=== PATIENT | female | born 1945 | race Caucasian/White ===

== ENCOUNTER 2017-07-10 10:26 | Outpatient (CLI) | payer MEDICARE | END 2017-07-10 10:27 | disposition home or self-care (01) | LOC: LABBT 10:26 | PROVIDERS: ATTEND Neurological Surgery | DX: Z01.818 Encounter for other preprocedural examination (principal); M54.16 Radiculopathy, lumbar region | CPT/HCPCS: 93005; 93010 ==

== ENCOUNTER 2017-07-17 05:40 | Day surgery (SDC) | payer MEDICARE ==
[2017-07-10 10:55] VITALS: BMI 22.4
--- NOTE | 2017-07-17 00:50 | HP ---
HISTORY OF PRESENT ILLNESS: Ms. Enriquez is a 72-year-old woman who presents for left lower extremity L 5 pain, which is profound. She has trouble sleeping and walking because of it and has tried physical therapy, injections, and medications with minimal relief. MRI on disk reveals L5 foraminal stenosis and L4 lateral recess stenosis, compressing this descending and exiting L5 nerve root. She is here to discuss possible surgical intervention. PAST MEDICAL HISTORY: Significant for hypertension, gastroesophageal reflux disease, coronary arteri al disease, and hyperlipidemia, and osteopenia. CURRENT MEDICATIONS: Swatara, nitroglycerin, gabapentin, lisinopril, Crestor, alendronate. ALLERGIES: No known drug allergies. PAST SURGICAL HISTORY: Shoulder surgery. PHYSICAL EXAMINATION: Patient is alert and oriented x3. Gait is antalgic. Lower extremity motor ex am is normal. ASSESSMENT: Lumbar radicular pain. PLAN: Dr. Driscoll met with the patient, reviewed imaging and ultimately advocated for a left-sided L4 and L5 decompression. He explained to the patient the risks, benefits, and alternatives to the proce dure. The patient expressed understanding and would like to move forward with surgery as discussed. I do believe the patient is mentally competent and capable of making medical decisions for herself a nd we will move forward with surgery as planned. [employer] Ced Mcintosh PA-C, dictating for Juan M Bartholomeworm
[2017-07-17] MEDS ORDERED: Bupivacaine PF 0.5% 30 ML VIAL ONE (06:20)
[2017-07-17] MEDS ORDERED: Thrombin 5000 UNITS/5 ML VIAL ONE (06:20)
[2017-07-17] MEDS ORDERED: CEFAZOLIN/Water 2 GM/20 ML SYRINGE ONE ×2 (06:36→11:29)
[2017-07-17] MEDS ORDERED: Fentanyl 100 MCG/2 ML VIAL ONE ×3 (06:50→09:08)
[2017-07-17] MEDS ORDERED: diphenhydrAMINE 25 MG CAP ONE (09:04)
[2017-07-17] MEDS ORDERED: Non-Formulary Medication 1 EACH PO PRN (09:08)
[2017-07-17] MEDS ORDERED: Ondansetron HCl/PF 4 MG/2 ML Vial IVP PRN (09:08)
[2017-07-17] MEDS ORDERED: Promethazine HCl 25 MG/ML VIAL IM/IV PRN (09:08)
[2017-07-17] MEDS ORDERED: Bisacodyl 10 MG SUPP PR PRN (09:12)
[2017-07-17] MEDS ORDERED: Acetaminophen 650 MG Suppository PR PRN (09:12)
[2017-07-17] MEDS ORDERED: Acetaminophen/Codeine 30-300mg Tablet PO PRN ×2 (09:12)
[2017-07-17] MEDS ORDERED: diphenhydrAMINE 50 MG/ML VIAL IVP PRN (09:12)
[2017-07-17] MEDS ORDERED: Mag-Al 1200 mg/1200 mg/30 ML UDCUP PO PRN (09:12)
[2017-07-17] MEDS ORDERED: tiZANidine HCl 4 MG TAB PO PRN (09:12)
[2017-07-17] MEDS ORDERED: diphenhydrAMINE 25 MG CAP PO PRN (09:12)
[2017-07-17] MEDS ORDERED: Sodium Chloride 0.9% 1,000 ML IV SCH (09:12)
[2017-07-17] MEDS ORDERED: Acetaminophen 325 MG TAB PO PRN (09:12)
[2017-07-17] MEDS ORDERED: Morphine 4 MG/ML Carpuject SLOW IVP PRN (09:12)
[2017-07-17] MEDS ORDERED: Ondansetron HCl/PF 4 MG/2 ML Vial IM PRN (09:14)
--- NOTE | 2017-07-17 10:12 | OP ---
DATE OF PROCEDURE: 07/17/2017 SURGEON: Carlos Driscoll M.D. AUTOMOTIVE WORKER: Ced Mcintosh PA-C INDICATION: Pain. DIAGNOSIS: Lumbar radiculopathy. PROCEDURE: L4-L5 lumbar decompression on the left and L5 foraminotomy. ANESTHESIA: General. TECHNIQUE: The patient was brought into the operating room and placed on general anesthesia. She wa s flipped from a supine to a prone position on the operating room table. A linear incision was plann ed over the L5 segment. After prepping and draping and after an appropriate operative pause, the inc ision was created. Soft tissues were swept left away midline. A self-retaining retractor was placed in the wound for optimal exposure. After confirming the appropriate level with C-arm fluoroscopy, a high-speed cutting drill bit as well as 2, 3 and 4 mm Kerrisons were used to perform laminectomy pamela ng the inferior aspect of L5, which extended into the inferior aspect of L4. A foraminotomy was perf ormed over the exiting L5 nerve root once the L5 pedicle was identified. At the completion of the pr ocedure, the lateral recesses at the L4-L5 were decompressed as was the foramen through which the exi ting L5 nerve root exited. The wound was irrigated. Hemostasis was maintained throughout. The woun d was then closed in anatomic layers and a pressure dressing was applied. There were no known proced ural complications.
[2017-07-17] MEDS ORDERED: Acetaminophen/Codeine 30-300mg Tablet ONE (11:33)
[2017-07-17] MEDS ORDERED: CEFAZOLIN/Water 2 GM/20 ML SYRINGE SLOW IVP SCH (15:00)
[2017-07-17] MEDS ORDERED: PHENYLEPHRINE-NS 100 MCG/ML 10 ML SYRINGE ONE (15:21)
[2017-07-17] MEDS ORDERED: Ketorolac Tromethamine 30 MG/ML VIAL ONE (15:21)
[2017-07-17] MEDS ORDERED: PROPOFOL 200 MG/20 ML VIAL ONE (15:21)
[2017-07-17] MEDS ORDERED: Dexamethasone 20 MG/5 ML VIAL ONE (15:21)
[2017-07-17] MEDS ORDERED: Glycopyrrolate 0.2 MG/ML 5 ML SYRINGE ONE (15:21)
[2017-07-17] MEDS ORDERED: Lidocaine 1% PF 5 ML VIAL ONE (15:21)
== END 2017-07-17 11:55 | disposition home or self-care (01) ==
LOC: SDC 05:40
PROVIDERS: ATTEND Neurological Surgery
PROC: 00NY0ZZ Release Lumbar Spinal Cord, Open Approach (ICD-10-PCS; principal; 2017-07-17)
DX: M54.16 Radiculopathy, lumbar region (principal); I10 Essential (primary) hypertension; K21.9 Gastro-esophageal reflux disease without esophagitis; I25.10 Atherosclerotic heart disease of native coronary artery without angina pectoris; E78.5 Hyperlipidemia, unspecified; M85.80 Other specified disorders of bone density and structure, unspecified site; Z79.899 Other long term (current) drug therapy; Z98.890 Other specified postprocedural states
CPT/HCPCS: 76001; 96374; J0131; J1100; J1885; J2001; J2704; J3010; S0020

== ENCOUNTER 2019-03-03 15:17 | Inpatient (IN) | payer MEDICARE ==
[~2019-03-03 15:17] MED LIST: ISOVUE-370 76%-LOCM 1 ML ONE
[2019-03-03] MEDS ORDERED: Ondansetron PF 4 MG/2 ML Vial ONE (15:50)
[2019-03-03] MEDS ORDERED: Morphine 4 MG/ML VIAL ONE (15:51)
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
[2019-03-03 16:04] LABS: #Basophils 0.1 thou/uL (0.0-0.2); #Eosinphils 0.1 thou/uL (0.0-0.7); #Lymphocytes 1.7 thou/uL (1.20-3.40); #Monocytes 0.7 thou/uL (0.11-0.59); %Basophils 0.6 % (0.0-1.0); %Eosinophils 0.8 % (0.0-10.0); %Lymphocytes 14.9 % (21.0-51.0); %Monocytes 5.8 % (0.0-10.0); %Neutrophils 77.9 % (42.0-75.0); Hemoglobin 13.1 g/dL (12.0-16.0); Mean Corpuscular HGB CONC 34.5 g/dL (32.0-36.0); Mean Corpuscular Hemoglobin 33.4 pg (27.0-31.0); Mean Corpuscular Volume 96.9 fL (78.0-98.0); Mean Platelet Volume 6.9 fL (7.4-10.4); Platelet Count 191 thou/uL (130-400); RBC Distribution Width 12.1 % (11.5-14.5); Red Blood Cell (RBC) Count 3.92 mill/uL (4.20-5.40); White Blood Cell (WBC) Count 11.5 thou/uL (4.8-10.8)
--- NOTE | 2019-03-03 16:07 | CT ---
CT of the chest, abdomen, pelvis: 03/03/2019 COMPARISON: None HISTORY: Injury, trauma, pain TECHNIQUE: Axial CT imaging at 5 mm intervals from thoracic inlet through pubic symphysis with IV con trast. Coronal and sagittal reformatted imaging of the chest, abdomen, pelvis, thoracic spine, and lumbar spine provided. FINDINGS: Incidental note is made of bilateral thyroid nodules measuring up to 1.5 cm on the left and 1.2 cm on the right. Nonemergent follow-up thyroid ultrasound is advised. No axillary, hilar, or mediastinal lymphadenopathy. No pleural, pericardial, or mediastinal fluid is noted. There is scattered atherosclerotic calcification of the aortic arch and descending thoracic aorta. There is no pneumothorax noted on either side. There are nonspecific areas of pleural-based nodularity noted posteriorly within both lung bases. Thi s includes a focal area of pleural nodularity within the right lower lobe measuring 5 mm in AP dimension on axial image 41 and an area of pleural nodularity within the left lower lobe posteriorly measuring 1.5 cm in transverse dimension. Review of the osseous structures of the chest demonstrates degenerative change involving the acromioc lavicular joint bilaterally. Postoperative linear hypodensity noted within the right humeral head. Neither shoulder is dislocated. Clavicles, manubrium, and sternum appear unremarkable. No evidence for an acute rib fracture noted on either side. No free intraperitoneal air or fluid. The liver, gallbladder, spleen, pancreas, adrenal glands, and kidneys demonstrate no acute findings. There are multiple bilateral renal hypodensities, many of which are too small to characterize. There is a nonspecific hypodense lesion within the midpole of the right kidney with Hounsfield units of 21 measuring 1.8 cm, not consistent with a simple cyst. There is a mass within the pelvis which demonstrates a central area of dense calcification. This mass measures 2.6 x 3.4 cm with a prominent area of internal rounded calcification. This is unchanged when compared to a CT of the lumbar spine performed 10/10/2017 and suggests a granuloma. Limited assessment of the bowel demonstrates no evidence for obstruction. There is extensive atherosclerotic calcification of the abdominal aorta and its branches. There is an eurysmal dilatation of the abdominal aorta on axial image 65 measuring 3 cm in transverse dimension. The osseous structures of the pelvis demonstrate no evidence for fracture of the inferior or superior pubic ramus on either side. Neither hip is dislocated. No widening of the sacroiliac joints or the pubic symphysis. No evidence for a sacral fracture. There is multilevel upper thoracic spine bilateral facet hypertrophy. There is a Schmorl's node involving the superior endplate of T12, stable. There is minimal anterior w edging at the T5 and T6 vertebral levels suggesting mild age indeterminant anterior wedge compression fracture deformities. There is a mild anterior wedge compression fracture of L2, stable w hen compared to the 10/20/2017 CT examination of the lumbar spine. There is prominent lower lumbar spine facet hypertrophy and there is prominent degenerative change at the lumbosacral junction. IMPRESSION: 1. Posterior pleural-based nodularity within the lung bases for which follow-up chest CT is advised i n 3-6 months 2. Hypodense thyroid nodules for which follow-up thyroid ultrasound is advised. 3. Nonspecific hypodense lesion within the midpole of the right kidney. Follow-up renal ultrasound is advised. 4. Infrarenal abdominal aortic aneurysm 5. Age indeterminant mild anterior wedge compression fractures of T5 and T6.
[2019-03-03 16:11] LABS: PTT 25.7 SEC (22.9-36.1); Prothrombin Time 13.4 SEC (12.0-14.7)
[2019-03-03 16:29] LABS: ALT (SGPT) 36 U/L (8-55); AST (SGOT) 32 U/L (5-34); Albumin 3.8 g/dL (3.4-4.8); Alkaline Phosphatase 67 U/L (40-150); Anion Gap 7 mmol/L (10-20); BUN (Urea Nitrogen) 13 mg/dL (9.8-20.1); Bilirubin, Total 0.2 mg/dL (0.2-1.2); Calc. Creatinine Clearance 0 mL/min (70-130); Calcium 9.4 mg/dL (7.8-10.44); Carbon Dioxide 27 mmol/L (23-31); Chloride 109 mmol/L (98-107); Estimated GFR-MDRD 66; Globulin 1.7 g/dL (2.4-3.5); Glucose 140 mg/dL (83-110); Potassium 4.8 mmol/L (3.5-5.1); Protein, Total 5.5 g/dL (6.0-8.3); Sodium 138 mmol/L (136-145)
[2019-03-03] MEDS ORDERED: Morphine 2 MG/ML SYRINGE ONE (17:00)
[2019-03-03] MEDS ORDERED: Acetaminophen 500 MG TAB ONE (17:01)
[2019-03-03] MEDS ORDERED: Ondansetron PF 4 MG/2 ML Vial IVP PRN (17:08)
[2019-03-03] MEDS ORDERED: Promethazine HCl 25 MG/ML VIAL IM PRN (17:08)
[2019-03-03] MEDS ORDERED: Dextrose 5% in Water 1,000 ML IV PRN (17:08)
[2019-03-03] MEDS ORDERED: Dextrose 50% Abboject 50 ML SYRINGE SLOW IVP PRN (17:08)
[2019-03-03] MEDS ORDERED: hydrALAZINE 20 MG/ML VIAL SLOW IVP PRN (17:08)
[2019-03-03] MEDS ORDERED: Ondansetron ODT 4 MG TAB PO PRN (17:08)
[2019-03-03] MEDS ORDERED: HumaLOG 300 UNITS/3 ML VIAL SC PRN (17:08)
[2019-03-03] MEDS ORDERED: Gabapentin 100 MG CAP PO PRN (17:14)
--- NOTE | 2019-03-03 17:16 | RAD ---
LEFT ANKLE THREE VIEWS: Date: 03-03-19 Comparison: None. History: Injury, trauma, pain. FINDINGS: There is lateral soft tissue swelling. Talar dome and ankle mortise appear intact. There is a questionable sclerotic band traversing the calcaneus. In addition, volar angle appears fla ttened. This is suspicious for a calcaneal fracture. IMPRESSION: Calcaneal fracture. This could be better assessed via CT. POS: OFF
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
--- NOTE | 2019-03-03 17:31 | CT ---
CT of the left foot: 03/03/2019 COMPARISON: None HISTORY: Evaluate calcaneal fracture noted on previous radiographs TECHNIQUE: Axial CT imaging is obtained at 2.5 mm intervals through the left foot without contrast. C oronal and sagittal reformatted imaging obtained. FINDINGS: Visualized portions of the distal tibia and fibula demonstrate no acute fracture. There is no evidence for acute fracture of the talus. There is a markedly comminuted fracture of the calcaneus with marked calcaneal flattening. There is involvement of the medial lateral superior and i nferior calcaneal cortex. There is multifocal extension into the subtalar joint involving the regions of the anterior middle an d posterior facets. There is abnormal widening of the subtalar joint with internal fluid. There is no evidence for fracture of the cuboid or navicular bone. The cuneiforms appear intact. No e vidence for metatarsal or phalangeal fracture. There is prominent soft tissue swelling adjacent to the calcaneal fracture. IMPRESSION: Markedly comminuted fracture of the calcaneus with multifocal extension into the subtalar joint. Orthopedic consultation advised.
[2019-03-03] MEDS ORDERED: HYDROcodone/Acetaminophen 10/325 mg Tablet PO PRN (17:54)
[2019-03-03] MEDS ORDERED: traMADol HCl 50 MG TAB PO SCH (18:00)
[2019-03-03] MEDS: Ketorolac Tromethamine 30 MG/ML VIAL IVP SCH ×2 (18:37→23:41)
[2019-03-03] MEDS: traMADol HCl 50 MG TAB PO PRN (18:37)
[2019-03-03] MEDS: Sodium Chloride 0.9% 1,000 ML IV SCH ×2 (18:38→23:56)
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
[2019-03-03] MEDS ORDERED: CEFAZOLIN 2 GM in Premix Bag 1 BAG IVPB SCH (20:15)
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
[2019-03-03] MEDS: Rosuvastatin 20 MG TAB PO SCH (20:51)
[2019-03-03] MEDS: Gabapentin 300 MG CAP PO SCH (20:51)
[2019-03-03] MEDS: Senokot S 8.6-50 MG TAB PO SCH (20:52)
[2019-03-03] MEDS: Famotidine/PF 20 mg/2ml Vial SLOW IVP SCH (20:52)
[2019-03-03] MEDS ORDERED: Gabapentin 100 MG CAP PO SCH (21:00)
[2019-03-03] MEDS: Cyclobenzaprine 10 MG TAB PO PRN (23:41)
[2019-03-03] MEDS: Acetaminophen 1,000 MG in Premix Bag 1 BAG IVPB SCH (23:42)
[2019-03-04] MEDS: Morphine 2 MG/ML SYRINGE SLOW IVP PRN ×2 (01:45→09:31)
[2019-03-04] MEDS: traMADol HCl 50 MG TAB PO PRN (02:45)
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
[2019-03-04] MEDS: Ketorolac Tromethamine 30 MG/ML VIAL IVP SCH ×3 (06:23→17:56)
[2019-03-04 07:08] LABS: #Basophils 0.1 thou/uL (0.0-0.2); #Eosinphils 0.2 thou/uL (0.0-0.7); #Lymphocytes 1.7 thou/uL (1.20-3.40); #Monocytes 0.9 thou/uL (0.11-0.59); #Neutrophils 5.4 thou/uL (1.40-6.50); %Basophils 0.7 % (0.0-1.0); %Eosinophils 2.1 % (0.0-10.0); %Lymphocytes 20.7 % (21.0-51.0); %Monocytes 10.4 % (0.0-10.0); %Neutrophils 66.1 % (42.0-75.0); Hemoglobin 11.8 g/dL (12.0-16.0); Mean Corpuscular HGB CONC 33.9 g/dL (32.0-36.0); Mean Corpuscular Hemoglobin 32.8 pg (27.0-31.0); Mean Corpuscular Volume 96.6 fL (78.0-98.0); Mean Platelet Volume 7.1 fL (7.4-10.4); Platelet Count 143 thou/uL (130-400); RBC Distribution Width 12.2 % (11.5-14.5); White Blood Cell (WBC) Count 8.2 thou/uL (4.8-10.8)
[2019-03-04 07:32] LABS: Anion Gap 6 mmol/L (10-20); BUN (Urea Nitrogen) 13 mg/dL (9.8-20.1); Calc. Creatinine Clearance 61 mL/min (70-130); Calcium 8.6 mg/dL (7.8-10.44); Carbon Dioxide 25 mmol/L (23-31); Chloride 113 mmol/L (98-107); Estimated GFR-MDRD 75; Glucose 118 mg/dL (83-110); Magnesium 1.9 mg/dL (1.6-2.6); Phosphorus 3.4 mg/dL (2.3-4.7); Potassium 4.1 mmol/L (3.5-5.1); Sodium 140 mmol/L (136-145)
[2019-03-04] MEDS ORDERED: Prevnar 13-Val Conj/PF 0.5 ML SYRINGE IM ONE (09:00)
[2019-03-04] MEDS: Gabapentin 300 MG CAP PO SCH ×3 (09:27→20:26)
[2019-03-04] MEDS: Lisinopril 5 MG TAB PO SCH (09:27)
[2019-03-04] MEDS: Polyethylene Glycol 3350 17 GM Packet PO SCH (09:28)
[2019-03-04] MEDS: Senokot S 8.6-50 MG TAB PO SCH ×2 (09:28→20:26)
[2019-03-04] MEDS: Acetaminophen 1,000 MG in Premix Bag 1 BAG IVPB SCH ×2 (09:31→17:56)
[2019-03-04] MEDS: Famotidine/PF 20 mg/2ml Vial SLOW IVP SCH ×2 (09:32→20:26)
[2019-03-04] MEDS ORDERED: Nicotine 21 MG PATCH TD SCH (11:00)
[2019-03-04] MEDS: Sodium Chloride 0.9% 1,000 ML IV SCH ×2 (11:39→18:42)
[2019-03-04] MEDS ORDERED: Midazolam HCl 2 mg/2 ml Vial ONE (12:49)
[2019-03-04] MEDS ORDERED: Dexamethasone 4 mg/ml Vial ONE (12:49)
[2019-03-04] MEDS ORDERED: Fentanyl 100 MCG/2 ML VIAL ONE ×2 (12:49→14:19)
[2019-03-04] MEDS: Nicotine 21 MG PATCH TD SCH (15:02)
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
[2019-03-04] MEDS ORDERED: Promethazine HCl 25 MG/ML VIAL IM PRN (16:13)
[2019-03-04] MEDS ORDERED: Ondansetron HCl/PF 4 MG/2 ML Vial IVP PRN (16:13)
[2019-03-04] MEDS ORDERED: Morphine Sulfate 2 MG/ML SYRINGE SLOW IVP PRN (16:13)
[2019-03-04] MEDS ORDERED: Promethazine HCl 25 MG/ML VIAL SLOW IVP PRN (16:13)
[2019-03-04] MEDS ORDERED: PACU-Morphine 4MG/ML VIAL SLOW IVP PRN (16:13)
[2019-03-04] MEDS ORDERED: HYDROmorphone 2 MG/ML VIAL SLOW IVP PRN (16:13)
--- NOTE | 2019-03-04 16:37 | OP ---
DATE OF PROCEDURE: 03/04/2019 OPERATIONS PERFORMED: 1. Open reduction and internal fixation of left calcaneus fracture. 2. Left knee inferior pole of patella excision with repair of patella tendon. PREOPERATIVE DIAGNOSES: 1. Comminuted left patella fracture. 2. Comminuted and displaced left calcaneus fracture. POSTOPERATIVE DIAGNOSES: 1. Comminuted left patella fracture. 2. Comminuted and displaced left calcaneus fracture. COMPLICATIONS: None. ESTIMATED BLOOD LOSS: 100 mL. RISK CONTROL SPECIALIST: Kennedy Newton. IMPLANTS: Synthes small fragment screws were utilized as well as #5 Ethibond suture. DESCRIPTION OF PROCEDURE: Ms. Enriquez was identified in the preoperative holding area. Her correct extremity was marked. She was carried to the operating room. She was positioned supine. General anesthesia was induced. A multidisciplinary time-out was performed. The left lower extremity was prepped and draped in sterile fashion. We began the procedure with the calcaneus. We evaluated the calcaneus on the lateral x-ray view. At this point, we made a small incision over the calcaneal fracture near the subtalar joint. We placed a hemostat in the bone through the fracture. We were able to elevate the articular surface back into its anatomic position, restoring Bohler's angle. We were happy with the reduction of the articular surface. We then placed a large K-wire in the tuberosity and pulled it more inferiorly and correcting the tuberosity position. We held this with K-wire fixation. At this point, we proceeded with fixation. We placed two 3.5-mm screws near the articular surface in the subchondral bone, holding our articular reduction. We then placed a long 4.0 screw through the tuberosity into the sustentaculum. This held our tuberosity position. At this point, we made a window in the bone and packed a copious amount of bone graft into the defect, left in the calcaneus. This helped to hold our position. We took x-ray images in all planes. There was no complication. We then thoroughly irrigated with copious lavage. We then closed our small wound with a 0 Vicryl suture, followed by nylon for the skin. A sterile dressing was applied. At this point, we moved to the knee. We made an anterior approach to the knee. We dissected down through the subcutaneous tissues to the patella tendon as well as the fracture. We encountered the comminuted inferior pole of the patella. Multiple fragments were removed. We ended up excising the inferior pole. We identified the patellar tendon. We then used a #5 Ethibond suture in a Krackow fashion through the patellar tendon, allowing secure advancement. The Ethibond suture was passed through 3 holes in the patella. This was tied over the proximal pole. This restored the tendon to bone contact. The sutures were tied at 40 degrees of knee flexion. At this point, we oversewed the repair with a #1 Vicryl suture, followed by 2-0 Vicryl suture, and skin closure. Sterile dressing was applied. The patient was taken to the recovery room at this point in good condition. Job ID: [id number]
[2019-03-04] MEDS ORDERED: Acetaminophen 500 MG TAB PO SCH (18:15)
[2019-03-04] MEDS: Rosuvastatin 20 MG TAB PO SCH (20:25)
--- NOTE | 2019-03-04 21:29 | RAD ---
INTRAOPERATIVE FLUOROSCOPY: History: Left calcaneal ORIF. FINDINGS: Three intraoperative fluoroscopic images demonstrate three screws transversing the calcaneus. Alignme nt is near anatomic. IMPRESSION: Intraoperative fluoroscopy. POS: NIDA
[2019-03-04] MEDS ORDERED: traMADol HCl 50 MG TAB PO PRN (21:32)
[2019-03-04] MEDS: Ibuprofen 600 MG TAB PO SCH (21:37)
[2019-03-04] MEDS: CEFAZOLIN 2 GM in Premix Bag 1 BAG IVPB SCH (21:38)
[2019-03-04] MEDS: Acetaminophen 325 MG TAB PO SCH (21:38)
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
[2019-03-05] MEDS: Acetaminophen 325 MG TAB PO SCH (05:17)
[2019-03-05] MEDS: CEFAZOLIN 2 GM in Premix Bag 1 BAG IVPB SCH (05:18)
[2019-03-05] MEDS: Ibuprofen 600 MG TAB PO SCH (05:18)
--- NOTE | 2019-03-05 07:36 | RAD ---
INTRAOPERATIVE FLUOROSCOPY: History: ORIF left patella. FINDINGS: Single fluoroscopic view demonstrates a patellar fracture. Exposure: 2.9 seconds, 0.13 mGy*cm^2 IMPRESSION: Intraoperative fluoroscopy. POS: NIDA
[2019-03-05] MEDS: Lisinopril 5 MG TAB PO SCH (08:35)
[2019-03-05] MEDS: Famotidine/PF 20 mg/2ml Vial SLOW IVP SCH (08:35)
[2019-03-05] MEDS: Gabapentin 300 MG CAP PO SCH ×3 (08:36→21:19)
[2019-03-05] MEDS: Polyethylene Glycol 3350 17 GM Packet PO SCH (08:36)
[2019-03-05] MEDS: Senokot S 8.6-50 MG TAB PO SCH ×2 (08:36→21:19)
[2019-03-05] MEDS ORDERED: traMADol HCl 50 MG TAB PO PRN (11:33)
[2019-03-05] MEDS ORDERED: Magnesium 2 GM/50 ML 2 GM in Premix Bag 1 BAG IVPB SCH (11:45)
[2019-03-05] MEDS ORDERED: PHOS-NAK 1 PKT PACK PO SCH (11:45)
[2019-03-05] MEDS: traMADol HCl 50 MG TAB PO SCH ×3 (12:42→23:26)
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
[2019-03-05 13:18] LABS: Troponin I 0.026 ng/mL (< 0.028)
[2019-03-05] MEDS: Acetaminophen 500 MG TAB PO SCH ×2 (14:16→21:20)
[2019-03-05] MEDS: Nicotine 21 MG PATCH TD SCH (14:17)
[2019-03-05] MEDS: Rosuvastatin 20 MG TAB PO SCH (21:19)
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
[2019-03-06] MEDS: Acetaminophen 500 MG TAB PO SCH ×3 (05:20→21:50)
[2019-03-06] MEDS: traMADol HCl 50 MG TAB PO SCH ×3 (05:21→17:16)
[2019-03-06 05:59] LABS: #Basophils 0.1 thou/uL (0.0-0.2); #Eosinphils 0.2 thou/uL (0.0-0.7); #Lymphocytes 1.9 thou/uL (1.20-3.40); #Monocytes 0.7 thou/uL (0.11-0.59); #Neutrophils 6.7 thou/uL (1.40-6.50); %Basophils 0.5 % (0.0-1.0); %Eosinophils 2.4 % (0.0-10.0); %Lymphocytes 19.9 % (21.0-51.0); %Monocytes 7.4 % (0.0-10.0); %Neutrophils 69.8 % (42.0-75.0); Hemoglobin 9.7 g/dL (12.0-16.0); Mean Corpuscular HGB CONC 34.2 g/dL (32.0-36.0); Mean Corpuscular Hemoglobin 33.2 pg (27.0-31.0); Mean Platelet Volume 7.4 fL (7.4-10.4); Platelet Count 142 thou/uL (130-400); RBC Distribution Width 12.3 % (11.5-14.5); Red Blood Cell (RBC) Count 2.91 mill/uL (4.20-5.40); White Blood Cell (WBC) Count 9.6 thou/uL (4.8-10.8)
[2019-03-06 07:55] LABS: Anion Gap 11 mmol/L (10-20); BUN (Urea Nitrogen) 12 mg/dL (9.8-20.1); Calc. Creatinine Clearance 59 mL/min (70-130); Calcium 8.9 mg/dL (7.8-10.44); Carbon Dioxide 25 mmol/L (23-31); Chloride 110 mmol/L (98-107); Estimated GFR-MDRD 73; Glucose 119 mg/dL (83-110); Phosphorus 3.3 mg/dL (2.3-4.7); Sodium 142 mmol/L (136-145)
[2019-03-06] MEDS: Gabapentin 300 MG CAP PO SCH ×3 (08:00→21:51)
[2019-03-06] MEDS: Polyethylene Glycol 3350 17 GM Packet PO SCH (08:00)
[2019-03-06] MEDS: Senokot S 8.6-50 MG TAB PO SCH ×2 (08:00→21:51)
[2019-03-06] MEDS: Lisinopril 5 MG TAB PO SCH (08:04)
[2019-03-06] MEDS: Enoxaparin Sodium 30 MG/0.3 ML SYRINGE SC SCH (08:40)
[2019-03-06] MEDS: Ibuprofen 600 MG TAB PO PRN (10:28)
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
[2019-03-06] MEDS: Cyclobenzaprine 10 MG TAB PO PRN (12:15)
[2019-03-06] MEDS: Nicotine 21 MG PATCH TD SCH (14:40)
[2019-03-06] MEDS: Rosuvastatin 20 MG TAB PO SCH (21:51)
[2019-03-07] MEDS: traMADol HCl 50 MG TAB PO SCH ×3 (00:01→12:20)
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
[2019-03-07] MEDS: Acetaminophen 500 MG TAB PO SCH (06:10)
[2019-03-07 06:30] LABS: #Eosinphils 0.3 thou/uL (0.0-0.7); #Lymphocytes 1.9 thou/uL (1.20-3.40); #Monocytes 0.8 thou/uL (0.11-0.59); #Neutrophils 5.4 thou/uL (1.40-6.50); %Lymphocytes 22.7 % (21.0-51.0); %Monocytes 9.6 % (0.0-10.0); %Neutrophils 63.6 % (42.0-75.0); Hemoglobin 10.3 g/dL (12.0-16.0); Mean Corpuscular Hemoglobin 33.2 pg (27.0-31.0); Mean Corpuscular Volume 97.4 fL (78.0-98.0); Mean Platelet Volume 6.9 fL (7.4-10.4); Platelet Count 157 thou/uL (130-400); RBC Distribution Width 12.4 % (11.5-14.5); White Blood Cell (WBC) Count 8.5 thou/uL (4.8-10.8)
[2019-03-07] MEDS: Ibuprofen 600 MG TAB PO PRN (06:59)
[2019-03-07] MEDS: Cyclobenzaprine 10 MG TAB PO PRN (06:59)
[2019-03-07] MEDS ORDERED: Acetaminophen/Codeine 30-300mg Tablet PO PRN ×2 (07:43)
[2019-03-07] MEDS ORDERED: Acetaminophen 500 MG TAB PO PRN (07:44)
[2019-03-07] MEDS: Gabapentin 300 MG CAP PO SCH (08:37)
[2019-03-07] MEDS: Polyethylene Glycol 3350 17 GM Packet PO SCH (08:37)
[2019-03-07] MEDS: Senokot S 8.6-50 MG TAB PO SCH (08:37)
[2019-03-07] MEDS: Lisinopril 5 MG TAB PO SCH (08:37)
[2019-03-07] MEDS: Enoxaparin Sodium 30 MG/0.3 ML SYRINGE SC SCH (08:38)
[2019-03-07 08:44] VITALS: TEMP 97.9
[2019-03-07 12:27] VITALS: BP 131/60
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
== END 2019-03-07 14:09 | DRG 501 ==
LOC: ERS 15:17 → SURG A 18:15
PROVIDERS: ADMIT Surgery; ATTEND Surgery
PROC: 0QSM04Z Reposition Left Tarsal with Internal Fixation Device, Open Approach (ICD-10-PCS; principal; 2019-03-04)
PROC: 0LBR0ZZ Excision of Left Knee Tendon, Open Approach (ICD-10-PCS; 2019-03-04)
DX: S92.002A Unspecified fracture of left calcaneus, initial encounter for closed fracture (principal); S82.042A Displaced comminuted fracture of left patella, initial encounter for closed fracture; S00.12XA Contusion of left eyelid and periocular area, initial encounter; M94.0 Chondrocostal junction syndrome [Tietze]; I10 Essential (primary) hypertension; J44.9 Chronic obstructive pulmonary disease, unspecified; Z87.891 Personal history of nicotine dependence; Z90.49 Acquired absence of other specified parts of digestive tract; Z90.710 Acquired absence of both cervix and uterus; V49.9XXA Car occupant (driver) (passenger) injured in unspecified traffic accident, initial encounter; Y92.512 Supermarket, store or market as the place of occurrence of the external cause
CPT/HCPCS: 29505; 36415; 70450; 70486; 71260; 72125; 74177; 76000; 80048; 80053; 83735; 84100; 84484; 85025; 85610; 85730; 90471; 90670; 93005; 94760; 96361; 96374; 96375; 96376; C1713; G0009; G0390; J0131; J0690; J1100; J1650; J1885; J2250; J2270; J2405; J3010; J3475; J7620; Q9966; S0028

== ENCOUNTER 2020-04-22 05:53 | Outpatient (CLI) | payer MEDICARE ==
[2020-04-23 18:38] LABS: SARS-CoV-2 MS2 Positive; SARS-CoV-2 N Gene Negative; SARS-CoV-2 S Gene Negative; SARS-CoV-2 by NAA Not Detected (NotDetected); SARS-CoV-2 orf1ab Negative
== END 2020-04-22 05:54 | disposition home or self-care (01) ==
LOC: LABBT 05:53
PROVIDERS: ATTEND Neurological Surgery
DX: Z01.818 Encounter for other preprocedural examination (principal); M54.16 Radiculopathy, lumbar region; Z20.828 Contact with and (suspected) exposure to other viral communicable diseases
CPT/HCPCS: 93005; U0003; 87635; 93010

== ENCOUNTER 2020-04-27 06:06 | Day surgery (SDC) | payer MEDICARE ==
[2020-04-23 15:11] VITALS: BMI 24.7
--- NOTE | 2020-04-26 20:39 | HP ---
HISTORY OF PRESENT ILLNESS: Ms. Enriquez is a very pleasant 74-year-old woman known to us for prior evaluations of lower back pain, who returns now with significant symptoms of bilateral lower extremity L5 pains with some components of S1, she has seen Neurology already who diagnosed her with neuropathy. After NCV new MRI reveals lateral recess stenosis at L4-5 more significant foraminal stenosis at L5 that would fit her symptoms well. She is distressed. She feels her pain inhibit her inability to walk. Examination deferred for tele health visit. PAST MEDICAL HISTORY: Hypercholesterolemia, headaches, anxiety, hypertension. PAST SURGICAL HISTORY: Hysterectomy, right shoulder rotator cuff repair. CURRENT MEDICATIONS: Tramadol. ALLERGIES: NO KNOWN DRUG ALLERGIES. ASSESSMENT: Lumbar radiculopathy. PLAN: Dr. Driscoll met with the patient, reviewed imaging and advocated for bilateral L5 decompression. He explained to the patient the risks, benefits, and alternatives to the procedure. The patient expressed understanding and elected to move forward with surgery as discussed. I do believe the patient mentally competent and capable of making medical decisions for herself. We will move forward with surgery as planned. Job ID: [id number]
[2020-04-27] MEDS ORDERED: Thrombin 5000 UNITS/5 ML VIAL ONE (06:34)
[2020-04-27] MEDS ORDERED: Bupivacaine PF 0.5% 30 ML VIAL ONE (06:34)
== END 2020-04-27 07:35 | disposition home or self-care (01) ==
LOC: SDC 06:06
PROVIDERS: ATTEND Neurological Surgery
DX: M54.16 Radiculopathy, lumbar region (principal); M48.061 Spinal stenosis, lumbar region without neurogenic claudication; E78.00 Pure hypercholesterolemia, unspecified; F41.9 Anxiety disorder, unspecified; I10 Essential (primary) hypertension; Z53.9 Procedure and treatment not carried out, unspecified reason; Z79.1 Long term (current) use of non-steroidal anti-inflammatories (NSAID); Z79.84 Long term (current) use of oral hypoglycemic drugs; Z79.899 Other long term (current) drug therapy
CPT/HCPCS: J0690; S0020

== ENCOUNTER 2020-06-16 06:46 | Outpatient (CLI) | payer MEDICARE ==
[2020-06-17 02:23] LABS: SARS-CoV-2 MS2 Positive; SARS-CoV-2 N Gene Negative; SARS-CoV-2 S Gene Negative; SARS-CoV-2 by NAA Not Detected (NotDetected); SARS-CoV-2 orf1ab Negative
== END 2020-06-16 06:47 | disposition home or self-care (01) ==
LOC: LABBT 06:46
PROVIDERS: ATTEND Neurological Surgery
DX: M54.16 Radiculopathy, lumbar region (principal); Z20.822 Contact with and (suspected) exposure to COVID-19
CPT/HCPCS: 87635; U0003

== ENCOUNTER 2020-06-19 05:52 | Day surgery (SDC) | payer MEDICARE ==
[2020-06-17 10:41] VITALS: BMI 24.7
--- NOTE | 2020-06-18 12:31 | HP ---
HISTORY OF PRESENT ILLNESS: Ms. Enriquez is a very pleasant 75-year-old woman known to our practice for prior evaluations of lower back problems, who returns now with significant pains to the bilateral lower extremities, but most significant to the left, which fit best in L5 distribution. She has seen Neurology, who diagnosed her early with neuropathy and polyradiculopathy after . New MRI demonstrates lateral recess stenosis at L5-S1 and at L4-5 likely impacting the L5 nerve roots. She has attempted conservative treatment in the past and hopes to discuss possible surgical intervention. PAST MEDICAL HISTORY: Migraines, hypertension, anxiety. CURRENT MEDICATIONS: None listed. SURGICAL HISTORY: Lumbar decompression. ALLERGIES: NO KNOWN DRUG ALLERGIES. PHYSICAL EXAMINATION: Deferred for telehealth visit. ASSESSMENT: Lumbar radiculopathy. PLAN: Dr. Driscoll met with the patient, reviewed imaging, and advocated for bilateral L5 decompression. He explained to the patient the risks, benefits, and alternatives to the procedure. The patient expressed understanding and elected to move forward with surgery as discussed. I do believe the patient is mentally competent and capable of making medical decisions for herself. We will move forward with surgery as planned. Job ID: [id number]
[2020-06-19] MEDS ORDERED: EPINEPHrine 1 MG/ML AMP ONE (06:24)
[2020-06-19] MEDS ORDERED: Bupivacaine PF 0.5% 30 ML VIAL ONE (06:24)
[2020-06-19] MEDS ORDERED: Thrombin 5000 UNITS/5 ML VIAL ONE (06:24)
[2020-06-19] MEDS ORDERED: Fentanyl 250 MCG/5 ML VIAL ONE (06:39)
[2020-06-19] MEDS ORDERED: SUGAMMADEX SODIUM 200 MG/2 ML VIAL ONE (08:13)
--- NOTE | 2020-06-19 08:42 | OP ---
DATE OF PROCEDURE: 06/19/2020 OPERATIONS PROFESSIONAL: Ced Mcintosh PA-C INDICATION: Pain. DIAGNOSIS: Lumbar radiculopathy. PROCEDURE PERFORMED: Reoperation of bilateral L5 decompression. ANESTHESIA: General. DESCRIPTION OF PROCEDURE: The patient was brought into the operating room and placed under general anesthesia. She was flipped from supine to prone position on operating room table. A linear incision was planned at the L5 region. After prepping and draping and after an appropriate preoperative pause, the incision was created. The soft tissues were swept away from midline. A self-retaining retractor was placed and a C-arm images were obtained to confirm the appropriate level. A bone defect was identified on the left side at the location of a prior operation. The laminectomy was extended superiorly to encompass the L4-L5 interface. A more extensive foraminotomy was performed at the exiting L5 nerve root. We then redirected our attention at the right side, where again an L5 laminectomy was completed on the right side as well. After completing the decompression, the wound was irrigated. Hemostasis was maintained throughout. The wound was then closed in anatomic layers, and a pressure dressing was applied. There were no known procedural complications. Job ID: [id number]
[2020-06-19] MEDS ORDERED: Rocuronium Bromide 10 MG/ML (10ML VIAL) ONE (09:55)
[2020-06-19] MEDS ORDERED: Lidocaine 1% PF 5 ML VIAL ONE (09:55)
[2020-06-19] MEDS ORDERED: PROPOFOL 200 MG/20 ML VIAL ONE (09:55)
[2020-06-19] MEDS ORDERED: Ketorolac Tromethamine 30 MG/ML VIAL ONE (09:55)
[2020-06-19] MEDS ORDERED: Ondansetron PF 4 MG/2 ML Vial ONE (09:55)
[2020-06-19] MEDS ORDERED: Dexamethasone 20 MG/5 ML VIAL ONE (09:55)
== END 2020-06-19 12:05 | disposition home or self-care (01) ==
LOC: SDC 05:52
PROVIDERS: ATTEND Neurological Surgery
PROC: 00NY0ZZ Release Lumbar Spinal Cord, Open Approach (ICD-10-PCS; principal; 2020-06-19)
DX: M54.16 Radiculopathy, lumbar region (principal); M48.061 Spinal stenosis, lumbar region without neurogenic claudication; G43.909 Migraine, unspecified, not intractable, without status migrainosus; I10 Essential (primary) hypertension; F41.9 Anxiety disorder, unspecified; Z79.84 Long term (current) use of oral hypoglycemic drugs; Z79.899 Other long term (current) drug therapy
CPT/HCPCS: 76000; J0171; J0690; J1100; J1885; J2405; J2704; J3010; S0020